=== PATIENT | female | born 1950 | race Asian ===

== ENCOUNTER 2018-07-24 16:35 | Inpatient (IN) | payer MEDICARE, BC ==
[~2018-07-24] VITALS: Ht 152.4 cm; Wt 53.1 kg
[2018-07-24] MEDS ORDERED: BENI5 GT (16:46)
[2018-07-24] MEDS ORDERED: ROSU5TAB PO (16:46)
[2018-07-24] MEDS ORDERED: ONDANSETRON HCL 4MG/2ML INJ IV ONE (17:00)
[2018-07-24 17:12] LABS: BASOPHILS % 0.6 % (0.0-2.0); EOSINOPHILS % 1.5 % (0.0-5.0); HEMATOCRIT. 45.6 % (36.0-48.0); HEMOGLOBIN. 14.3 g/dL (12.0-16.0); LYMPHOCYTES % 25.6 % (20.0-50.0); MEAN CORPUSCULAR HEMOGLOBIN 20.8 pg (28.0-32.0); MEAN CORPUSCULAR VOLUME 66.2 fL (81.0-99.0); MEAN PLATELET VOLUME 8.8 fl (7.4-10.4); MONOCYTES % 8.4 % (2.0-8.0); NEUTROPHILS % 63.9 % (40.0-76.0); PLATELET 280 x1000/uL (130-400); RED BLOOD CELL COUNT 6.89 mill/uL (4.2-5.4); RED CELL DISTRIBUTION WIDTH 16.2 % (11.6-14.6)
[2018-07-24] MEDS ORDERED: DOCUSATE SODIUM 100MG CAPSULE PO PRN (17:15)
[2018-07-24] MEDS ORDERED: ASPIRIN 81MG TABLET PO ONE (17:15)
[2018-07-24] MEDS ORDERED: MECLIZINE 12.5MG TABLET PO ONE (17:15)
[2018-07-24] MEDS ORDERED: CLONIDINE 0.1MG TABLET PO PRN (17:15)
[2018-07-24] MEDS ORDERED: HYDROCODONE/ACETAMINOPHEN 5/325MG TABLET PO PRN (17:15)
[2018-07-24] MEDS ORDERED: ONDANSETRON HCL 4MG/2ML INJ IV PRN (17:15)
[2018-07-24 17:19] LABS: CHLORIDE 106 mEq/L (98-107); PROTHROMBIN TIME 10.7 sec (9.6-11.0)
[2018-07-24 17:24] LABS: ETHANOL BLOOD < 10 mg/dL
[2018-07-24 17:26] LABS: LDL CHOLESTEROL 133 mg/dL (5-100)
[2018-07-24 17:29] LABS: PLATELET ESTIMATE NORMAL
[2018-07-24] MEDS ORDERED: GADOBENATE DIMEGLUMINE 529 MG/ML 10ML IV ONE (17:47)
[2018-07-24 20:00] VITALS: BP 143/81
[2018-07-24] MEDS: DEXT 5%/0.45% NACL 1000ML 1,000 ML IV SCH (20:43)
[2018-07-24] MEDS ORDERED: ATORVASTATIN CALCIUM 10MG TABLET PO SCH (21:00)
[2018-07-24 22:20] VITALS: BP 135/99
[2018-07-25] VITALS (11 sets, daily range): BP systolic 113–133; BP diastolic 63–85
[2018-07-25 06:54] LABS: BASOPHILS % 0.6 % (0.0-2.0); EOSINOPHILS % 2.5 % (0.0-5.0); HEMATOCRIT. 45.9 % (36.0-48.0); HEMOGLOBIN. 14.1 g/dL (12.0-16.0); LYMPHOCYTES % 26.4 % (20.0-50.0); MEAN CORPUSCULAR HEMOGLOBIN 20.7 pg (28.0-32.0); MEAN CORPUSCULAR VOLUME 67.2 fL (81.0-99.0); MEAN PLATELET VOLUME 8.9 fl (7.4-10.4); MONOCYTES % 8.2 % (2.0-8.0); NEUTROPHILS % 62.3 % (40.0-76.0); PLATELET 257 x1000/uL (130-400); RED BLOOD CELL COUNT 6.83 mill/uL (4.2-5.4); RED CELL DISTRIBUTION WIDTH 16.5 % (11.6-14.6)
[2018-07-25 07:21] LABS: CHLORIDE 107 mEq/L (98-107)
[2018-07-25] MEDS ORDERED: LISINOPRIL 5MG TABLET PO SCH (09:00)
[2018-07-25] MEDS ORDERED: POTASSIUM CHLORIDE 20MEQ TABLET SR PO NR (09:15)
[2018-07-25 10:30] LABS: T4 FREE 1.02 ng/dL (0.76-1.46)
[2018-07-25 10:52] LABS: VITAMIN B12 SERUM 571 pg/mL (211-911)
[2018-07-25 10:58] LABS: FOLIC ACID (FOLATE) SERUM > 20.00 ng/mL (>5.38)
[2018-07-25] MEDS: DEXT 5%/0.45% NACL 1000ML 1,000 ML IV SCH (10:58)
== END 2018-07-25 16:00 | disposition home or self-care (01) | DRG 312 ==
LOC: ER 16:40 → 5EST 16:59 → EDBEDREQ 17:02 → EDBEDREQTM 17:02 → ENRESERV 18:06 → SUPCPDRO 19:12
PROVIDERS: ADMIT Internal Medicine Nephrology; ATTEND Internal Medicine Nephrology
PROC: 4A00X4Z Measurement of Central Nervous Electrical Activity, External Approach (ICD-10-PCS; principal; 2018-07-25)
DX: R55 Syncope and collapse (principal); R00.1 Bradycardia, unspecified; E78.00 Pure hypercholesterolemia, unspecified; E78.5 Hyperlipidemia, unspecified; E87.6 Hypokalemia; K80.20 Calculus of gallbladder without cholecystitis without obstruction; R07.9 Chest pain, unspecified; R73.9 Hyperglycemia, unspecified; R74.8 Abnormal levels of other serum enzymes; R74.0 Nonspecific elevation of levels of transaminase and lactic acid dehydrogenase [LDH]; I10 Essential (primary) hypertension; H81.10 Benign paroxysmal vertigo, unspecified ear; N27.0 Small kidney, unilateral; T44.7X5A Adverse effect of beta-adrenoreceptor antagonists, initial encounter; V43.52XA Car driver injured in collision with other type car in traffic accident, initial encounter; Y92.488 Other paved roadways as the place of occurrence of the external cause; Z90.710 Acquired absence of both cervix and uterus; Y93.89 Activity, other specified; Y99.8 Other external cause status
CPT/HCPCS: 36415; 70544; 70547; 70553; 71045; 76700; 80320; 82140; 82607; 82746; 82962; 83036; 83718; 83721; 83735; 84439; 84443; 84478; 84481; 84484; 86850; 86900; 93005; 93306; 93880; 93970; 96374; 97162; 97165; 99291; A9577; J2405; J8597; G0480

== ENCOUNTER 2023-12-31 18:47 | Emergency (ER) | payer MEDICARE, BC ==
[~2023-12-31 18:47] MED LIST: ROSU5TAB PO
[2023-12-31 19:29] LABS: BASOPHILS % 1.2 % (0.0-2.0); EOSINOPHILS % 1.2 % (0.0-5.0); HEMATOCRIT. 42.9 % (36.0-48.0); HEMOGLOBIN. 13.4 g/dL (12.0-16.0); LYMPHOCYTES % 24.9 % (20.0-50.0); MEAN CORPUSCULAR HEMOGLOBIN 21.1 pg (28.0-32.0); MEAN CORPUSCULAR HGB CONC 31.3 g/dL (31.0-37.0); MEAN CORPUSCULAR VOLUME 67.3 fL (81.0-99.0); MONOCYTES % 9.8 % (2.0-8.0); NEUTROPHILS % 62.9 % (40.0-76.0); PLATELET 279 x1000/uL (130-400); RED BLOOD CELL COUNT 6.37 mill/uL (4.2-5.4); RED CELL DISTRIBUTION WIDTH 15.5 % (11.6-14.6); WHITE BLOOD COUNT 7.2 x1000/uL (4.5-11.0)
[2023-12-31 19:30] LABS: ADD RBC MORPHOLOGY YES; DIFFERENTIAL COMMENT 1
[2023-12-31 19:32] LABS: CHLORIDE 104 mEq/L (98-107); POTASSIUM 3.7 mEq/L (3.5-5.1); SODIUM 138 mEq/L (136-145)
[2023-12-31 19:33] LABS: CARBON DIOXIDE 27 mEq/L (21-32)
[2023-12-31 19:38] LABS: CREATININE 0.8 mg/dL (0.6-1.0); GLUCOSE 104 mg/dL (70-105); UREA NITROGEN BLOOD 10 mg/dL (9-23)
[2023-12-31 19:39] LABS: LDL CHOLESTEROL 109 mg/dL (5-100)
[2023-12-31 19:40] LABS: ETHANOL BLOOD < 10 mg/dL (<10); TROPONIN I HIGH SENSITIVITY < 4 ng/L (3.0-34)
[2023-12-31 19:48] LABS: INR 1.1; PROTHROMBIN TIME 11.8 sec (9.6-11.0)
[2023-12-31 19:51] LABS: HYPOCHROMASIA 2+; MICROCYTOSIS 3+; PLATELET ESTIMATE NORMAL
[2023-12-31 21:47] LABS: CLARITY URINE CLEAR (CLEAR); COLOR URINE YELLOW (YELLOW); GLUCOSE URINE NEGATIVE (NEGATIVE); KETONES URINE NEGATIVE (NEGATIVE); LEUKOCYTE ESTERASE URINE NEGATIVE (NEGATIVE); NITRITE URINE NEGATIVE (NEGATIVE); OCCULT BLOOD URINE NEGATIVE (NEGATIVE); PROTEIN URINE NEGATIVE (NEGATIVE); SPECIFIC GRAVITY URINE 1.007 (1.005-1.030); UROBILINOGEN URINE 0.2 E.U./dL (0.2-1.0)
[2023-12-31 21:54] LABS: *AMPHETAMINES SCREEN URINE NEGATIVE (NEGATIVE); *BARBITURATES SCREEN URINE NEGATIVE (NEGATIVE); *BENZODIAZEPINES SCREEN URINE NEGATIVE (NEGATIVE); *COCAINE SCREEN URINE NEGATIVE (NEGATIVE); METHADONE URINE SCREEN NEGATIVE (NEGATIVE); OPIATES URINE SCREEN NEGATIVE (NEGATIVE)
[2023-12-31 21:55] LABS: CANNABINOID URINE SCREEN NEGATIVE (NEGATIVE); ECSTASY MDMA SCREEN URINE NEGATIVE (NEGATIVE); PHENCYCLIDINE URINE SCREEN NEGATIVE (NEGATIVE)
[2023-12-31 22:00] VITALS: BP 130/76; PULSE 68; RESP 16; TEMP 36.83628; O2SAT 100
[2023-12-31] MEDS ORDERED: IOHEXOL-350 100 ML BOTTLE ONE (23:11)
== END 2023-12-31 22:09 | disposition home or self-care (01) ==
LOC: ER 18:47 → EDBEDREQ 19:10 → ER 22:09
DX: G45.9 Transient cerebral ischemic attack, unspecified (principal); I10 Essential (primary) hypertension; E78.00 Pure hypercholesterolemia, unspecified
CPT/HCPCS: 80305; 80048; 81003; 80320; 83721; 83690; 83735; 85025; 85610; 84484; 36415; 71045; 70496; 70498; 70551; 93005; 99285; Q9967; G0480

== ENCOUNTER → 2024-01-16 | Outpatient (CLI) | payer MEDICARE, BC | END | disposition home or self-care (01) | LOC: CARD 07:49 | PROVIDERS: ATTEND Internal Medicine | DX: G31.84 Mild cognitive impairment of uncertain or unknown etiology (principal) ==